=== PATIENT | female | born 1970 | race Caucasian/White ===

== ENCOUNTER 2023-09-22 14:53 | Emergency (ER) | payer SELFPAY ==
[2023-09-22 14:54] VITALS: TEMP 36.4; BMI 39.3
[2023-09-22 15:02] VITALS: BP 145/120; PULSE 110; RESP 26; O2SAT 100
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
--- NOTE | 2023-09-22 15:49 | CT_ITS ---
STUDY: CT CHEST, ABDOMEN T PELVIS WITH CONTRAST REASON FOR EXAM: Female, 53 years old. luq pain -- TRAUMA ONLY: IV Contrast. Dont wait for creatinine RADIATION DOSAGE (If Supplied By Facility): CTDIvol = ( 21.85 ) mGy, DLP = ( 2067.32 ) mGycm TECHNIQUE: Transaxial imaging was performed following intravenous administration of IV 100mL Isovue-370. Individualized dose optimization techniques were used for this CT. COMPARISON: No relevant priors. FINDINGS: CHEST Minor interstitial thickening and emphysematous changes in the upper lobes. Minor atelectasis within the dependent portion of the lungs.. Small noncalcified nodule in the right middle lobe measuring 7.1 x 8.8 mm There is no demonstrated pleural abnormality. Normal heart and pericardium. No appreciable coronary artery calcification Normal mediastinum. Normal hilar regions. Normal unenhanced pulmonary arteries. Normal aorta arch and descending thoracic aorta. Dorsal spine demonstrates degenerative change. Moderate size hiatal hernia noted. ABDOMEN There is asymmetric enlargement of the right lobe of the liver possibly ovarian. No space-occupying lesions or dilated ducts.. Normal gallbladder and extrahepatic biliary system. Normal spleen. Normal pancreas. Right adrenal is normal. There is a small left adrenal nodule measuring approximately 9.5 x 10.6 mm of indeterminate etiology may be further assessed with MRI if clinically warranted. Small nonobstructing calculus in the midpole of the right kidney.. No evidence for hydronephrosis or mass. Normal left kidney. Normal visualized stomach. Normal small intestine. Normal colon. No evidence for acute appendicitis. Atherosclerotic changes of the aorta without evidence for aneurysm.. Normal inferior vena cava. Normal retroperitoneum. Normal abdominal wall. PELVIS Poorly distended thick walled bladder likely of no significance. . Large cystic mass in the right adnexa measuring 6.75 x 5.1 cm tiny focal calcification in the wall most likely ovarian in etiology. Uterus not visualized consistent with hysterectomy Normal visualized small intestine. Normal visualized colon. There is no pelvic fluid. There is no pelvic lymphadenopathy or mass lesion. Normal visualized pelvic arteries. Normal abdominal wall. Lumbar spine demonstrates mild spondylosis. CT/CT Chest, Abd, Pel w/Contrast IMPRESSION: No acute posttraumatic abnormalities of the chest abdomen or pelvis . Mild emphysematous changes in the upper lobes and noncalcified nodule in the right middle lobe of indeterminate etiology. Recommend follow-up imaging utilizing Fleischner Society criteria Moderate size hiatal hernia. Right nephrolithiasis without evidence for obstruction or ureteral calculus Status post hysterectomy. Large right adnexal cystic mass with tiny rim calcification most likely ovarian. Small left adrenal nodule of uncertain etiology MRI recommended for further evaluation Electronically Signed: Melo Nettles MD at 17:30 EST ,
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
[2023-09-22 16:00] VITALS: PULSE 76; RESP 16; O2SAT 100
--- NOTE | 2023-09-22 16:03 | ED.RN ---
NO OLD EKG
[2023-09-22] MEDS: 0.9% Normal Saline (1000mL) 1,000 ML 999 ML IV (16:31)
[2023-09-22] MEDS: Ketorolac 15 MG/ML Vial IV (16:31)
[2023-09-22] MEDS: Lidocaine 5% Patch 1 PATCH TOPICAL (16:31)
[2023-09-22 16:49] LABS: Absolute Lymphocyte Count 2.19 X10^3/uL (0.83-4.51); Absolute Neutrophil Count 11.3 X10^3/uL (2.0-7.7); Basophil# 0.05 X10^3/uL; Basophil% 0.3 % (0-1); Eosinophil# 0.27 X10^3/uL; Eosinophils% 1.9 % (0-5); Hematocrit 41.8 % (37-47); Hemoglobin 14.4 g/dL (12.0-15.0); Lymphocyte # 2.19 X10^3/ul (0.83-4.51); Mean Corp Hgb Conc 34.4 g/dL (32-36); Mean Corpuscular Volume 87.1 fL (81-99); Mean Platelet Vol. 9.9 fl (6.2-12.0); Monocyte# 0.68 X10^3/uL; Monocyte% 4.7 % (0-10); NRBC Flagged by Analyzer 0 % (0-5); Neutrophil # 11.29 X10^3/uL (2.7-7.7); Neutrophil % 77.6 % (47-70); Platelet Count 300 K/mm3 (150-450); RBC Distribution Width CV 13.4 % (11.6-14.6); RBC Distribution Width SD 42.5 fl (35.1-43.9); White Blood Count 14.6 K/mm3 (4.4-11.0)
[2023-09-22 17:00] VITALS: PULSE 88; RESP 14; O2SAT 98
[2023-09-22 17:02] LABS: Anion Gap 7 (5-15); BUN 11 mg/dL (7-18); BUN/Creat Ratio 11.1 RATIO (10-20); Calcium,Total 9.8 mg/dL (8.5-10.1); Chloride 108 mmol/L (98-107); Creatinine, Serum 0.99 mg/dL (0.55-1.02); EST Glomerular Filtration Rate 63 mL/min (>60); Est Glom Filt Rate - Afr Amer 76 mL/min (>60); Estimated Creatinine Clearance 75.26 ml/min; Glucose 136 mg/dL (74-106); Lipase 30 U/L (13-75); Potassium 3.6 mmol/L (3.5-5.1); Sodium Level 138 mmol/L (136-145)
--- OUTSIDE RECORDS SUMMARY | 2023-09-22 17:13 | XMS RPT_ITS | CCD ---
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 AMARIS CHACON Referring Unavaila ble DAVID, Dr. AMARIS CHACON Attending Unavaila ly HERNANDEZ, Dr. AMARIS CHACON Primary Care Unavaila ble DAVID, Dr. AMARIS CHACON Primary Care Unavaila ble DAVID, Dr. AMARIS CHACON Referring Unavaila ble DAVID, Dr. AMARIS CHACON Attending Unavaila ble Allergies Allergy Classification Reported Allergen(s) Allergy Type Date of Onset Reaction(s) Facility (3 sources) Acetaminophen / HYDROcodone; Translations: [Vicodin TABS] Drug Allergy [facility] Work Phone: (3 sources) Other Allergy to substance (finding) [facility] Work Phone: Medications Completed/Discontinued Medications Medication Drug Class(es) Dates Sig (Normalized) Sig (Original) 200 actuat albuterol 0.09 mg/actuat metered dose inhaler (4 sources) beta2-Adrenergic Agonist Start: 06-02-2019 take 1-2 puff(s) by inhalation every four to six hours as needed ProAir HFA 108 (90 Base) MCG/ACT Inhalation Aerosol Solution INHALE 1-2 PUFFS EVERY 4-6 HOURS NEEDED AND DIRECTED. Quantity: 1 Refills: 2 Amaris Hernandez MD Start : 02-Jun-2019 Active 8.5 GM Inhaler Problems Active Problems Problem Classification Problem Date Documented Da te Episodic/Chronic Acute bronchitis (3 sources) Acute bronchitis; Translations: [Acute bronchitis] Episodic Asthma (3 sources) Asthma; Translations: [Asthma, unspecified type, unspecified] Chronic Esophageal disorders (3 sources) Gastroesophageal reflux disease; Translations: [Esophageal reflux] Chronic Headache; including migraine (3 sources) Migraine; Translations: [Migraine, unspecified, without mention of intractable migraine without mention of status migrainosus] Chronic Immunizations and screening for infectious disease (4 sources) Patient encounter status; Translations: [Other specified vaccination] Episodic Osteoarthritis (3 sources) Arthritis; Translations: [Arthropathy, unspecified, site unspecified] Chronic Other endocrine disorders (6 sources) Hypoglycemia; Translations: [Hypoglycemia, unspecified] Chronic Past or Other Problems Problem Classification Problem Date Documented Da te Episodic/Chronic Residual codes; unclassified (2 sources) History of clinical finding in subject; Translations: [Personal history of other specified diseases] Resolved: 11-22-2015 Episodic Unclassified (1 source) History of clinical finding in subject; Translations: [History of edema] Unclassified (1 source) Patient encounter status; Translations: [Encounter for immunization] NEGATED: Highlighted row has not occurred!Residual codes; unclassified (3 sources) Disease Episodic Results Test Name Value Interpretation Reference Range Facil ity Vital Signs Date Time Vital Sign Value Performing Clinician Deejay baltazar 08-07-2022 14:53-0500 Diastolic blood pressure 100 mm[Hg] Amaris Hernandez Work Phone: [facility] Work Phone: 08-07-2022 14:53-0500 Systolic blood pressure 168 mm[Hg] Amaris Hernandez Work Phone: [facility] Work Phone: 08-07-2022 14:25-0500 Diastolic blood pressure 100 mm[Hg] Amaris Hernandez Work Phone: [facility] Work Phone: 08-07-2022 14:25-0500 Systolic blood pressure 170 mm[Hg] Amaris Hernandez Work Phone: [facility] Work Phone: 08-07-2022 14:10-0500 Body height 160.02 cm Amaris Hernandez Work Phone: [facility] Work Phone: 08-07-2022 14:10-0500 Body mass index (BMI) [Ratio] 41.63 kg/m2 Amaris Hernandez Work Phone: [facility] Work Phone: 08-07-2022 14:10-0500 Body surface area Derived from formula 2.07 m2 Amaris Hernandez Work Phone: [facility] Work Phone: 08-07-2022 14:10-0500 Body temperature 98.3 [degF] Amaris Hernandez Work Phone: [facility] Work Phone: 08-07-2022 14:10-0500 Body weight 106.6 kg Amaris Hernandez Work Phone: [facility] Work Phone: 08-07-2022 14:10-0500 Diastolic blood pressure 120 mm[Hg] Amaris Hernandez Work Phone: [facility] Work Phone: 08-07-2022 14:10-0500 Heart rate 90 /min Amaris Covarrubiasmel Work Phone: [facility] Work Phone: 08-07-2022 14:10-0500 Respiratory rate 18 /min Amaris Hernandez Work Phone: [facility] Work Phone: 08-07-2022 14:10-0500 Systolic blood pressure 180 mm[Hg] Amaris Covarrubiasmel Work Phone: [facility] Work Phone: Encounters Encounter Date Encounter Type Care Provider Facility Start: 08-21-[address] AMARIS HERNANDEZ Facility:[id number] Start: 08-07-[address] AMARIS HERNANDEZ Facility:[id number] Start: 08-07-2022 Office outpatient vi sit 25 minutes Amaris Hernandez Work Phone: [facility] Work Phone: Start: 08-07-2022 Patient encounter procedure Amaris Hernandez Work Phone: [facility] Work Phone: Start: 03-05-2020 Patient encounter procedure Amaris Hernandez [facility] Work Phone: Start: 11-07-2019 Patient encounter procedure [facility] Work Phone: Start: 04-28-2019 Patient encounter procedure [facility] Work Phone: Procedures Date Procedure Procedure Detail Performing Clinician Hernia repair Amaris Hernandez Hysterectomy Amaris Hernandez Plan of Treatment Date Care Activity Detail Author Start: 08-21-2022 Nursing evaluation o f patient and report NURSEVST, Provider: NURSE MINA,PRASHANTH COLLINS, Status: Pen, Time: 10:00 AM [facility] Work Phone: Immunizations Immunization Date Immunization Notes Care Provider Fa cility 03-05-2020 tetanus toxoid, redu shayan diphtheria toxoid, and acellular pertussis vaccine, adsorbed; Translations: [Tdap (Adacel)] Amaris Hernandez [facility] Work Phone: Payers Date Payer Category Payer Unknown [id number] 1970 Unknown [id number] Private Health Insurance [id number] Unknown [facility] Social History Date Type Detail Facility Caffeine use Caffeine use [facility] Work Phone: NEGATED: Highlighted row - - [facility] Work Phone: Functional Status Date Assessment Result Facility NEGATED: Highlighted row Functional performance Functional status health issues are not documented Disease [facility] Work Phone: Mental Status Date Assessment Result Facility NEGATED: Highlighted row Cognitive function [Interpretation] Cognitive status health issues are not documented Disease [facility] Work Phone: History of Present illness Narrative Note Date & Type Note Facility History of Present illness Narrative 52 year old female with hx of GERD, asthma presenting for f/u medications.She does thyroid US and chest CTShe was unable to see anyone during the pandemic due to issues with masking.Does not want to wear a mask.She refuses to take BP meds.Refuses to check at home.Has been under a lot stress at work.BP elevated.Was working on weight loss.She has some congestion.Increased asthma symptoms.When gets congested she likes to use steroids.No chest pain, SOB, leg edema, no headaches or dizziness.Exercise tolerance good. [facility] Work Phone: History of Present illness Narrative Note Date & Type Note Facility History of Present illness Narrative 52 year old female with hx of GERD, asthma presenting for f/u medications.She does thyroid US and chest CTShe was unable to see anyone during the pandemic due to issues with masking.Does not want to wear a mask.She refuses to take BP meds.Refuses to check at home.Has been under a lot stress at work.BP elevated.Was working on weight loss.She has some congestion.Increased asthma symptoms.When gets congested she likes to use steroids.No chest pain, SOB, leg edema, no headaches or dizziness.Exercise tolerance good. [facility] Work Phone: Summary Purpose Family History No Family History Records Found Father Name Dates Details Family history of malignant neoplasm(V16.9, Z80.9) Status:Active Sister Name Dates Details Family history of Thyroid tr ouble(246.9, E07.9) Status:Active Unknown Family Member Name Dates Details Family history of malignant neoplasm: Father(V16.9, Z80.9) Status:Active Thyroid trouble: Sister Status:Active Unknown Family Member Name Dates Details Family history of malignant neoplasm: Father(V16.9, Z80.9) Status:Active Thyroid trouble: Sister Status:Active Advance Directives No Advanced Directives Records FoundNo Advanced Directives Records FoundNo Advanced Directives Records Found Hospital Course Note HNO ID: [id number] Author: Joyce Gipson Jr. Service: Hospital Medicine Author Type: Physician Type: Discharge Summary Filed: 08/25/2020 3:49 PM Note Text: DISCHARGE SUMMARY PATIENT NAME: Althea Mccartney ADMISSION DATE: 08/22/2020 DISCHARGE DATE: 08/25/2020 ATTENDING PHYSICIAN: Lex Gipson Jr. Code Status: Not on file Highest Readmission Risk Score: 12 The 30 day readmissions risk score is derived from an internally validated risk model which evaluates patient level characteristics, utilization history, medication orders and lab results up until the day of discharge. Patients with a score of 40 or above are considered highest risk for readmission. Specific patient level drivers will be listed at the bottom of the summary. Treatment Team: Attending Provider: Lex Gipson Jr. Primary Service: Team 1 Hi Consulting: Mike Tesfaye MD REASON FOR HOSPITALIZATION: COVID-19 Pneumonia; Hypoxia DIAGNOSIS: Principal Problem: Acute respiratory failure with hypox (more content not included)... Chief Complaint Chief Complaint: ALTHEA MCCARTNEY is here with a chief complaint of . Medication.Chief Complaint: ALTHEA MCCARTNEY is here with a chief complaint of . Medication. Additional Source Comments INFORMATION SOURCE (unrecogn ized section and content) DATE CREATED AUTHOR AUTHOR'S ORGANIZ ATION 08/08/2022 [employer] DATE CREATED AUTHOR AUTHOR'S ORGANIZ ATION 08/28/2022 [facility] FOR RECORDS PERTAINING TO PATIENTS WHO ARE OR HAVE BEEN ENROLLED IN A CHEMICAL DEPENDENCY/SUBSTANCEABUSE PROGRAM, SOME INFORMATION MAY BE OMITTED. This clinical summary was aggregated from multiple sources. Caution should be exercised in using it in the provision of clinical care. This summary normalizes information from multiple sources, and as a consequence, information in this document may materially change the coding, format and clinical context of patient data. In addition, data may be omitted in some cases. CLINICAL DECISIONS SHOULD BE BASED ON THE PRIMARY CLINICAL RECORDS. [facility]. provides no warranty or guarantee of the accuracy or completeness of information in this document.
[2023-09-22 17:37] LABS: Alcohol, Blood (Medical)-Serum < 3.0 mg/dL
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
--- NOTE | 2023-09-22 18:20 | RAD_ITS ---
STUDY: X-RAY - RIGHT KNEE REASON FOR EXAM: Female, 53 years old. pain TECHNIQUE: 4 view(s) of the knee. COMPARISON: None. FINDINGS: Normal visualized distal femur. Normal visualized proximal tibia and fibula. Normal proximal tibiofibular articulation. Normal medial femorotibial compartment. Normal lateral femorotibial compartment. Normal patellofemoral articulation. Prepatellar soft tissue swelling is noted. RAD/Knee 4 or More Views IMPRESSION: Prepatellar soft tissue swelling without associated acute fracture or dislocation. Electronically Signed: Melo Nettles MD at 18:40 EST Reading Location ID and State: [address] [place] [address] Tel , Service support ,
[2023-09-22 19:30] VITALS: RESP 14; O2SAT 100
== END 2023-09-22 19:31 | disposition home or self-care (01) ==
PROVIDERS: Emergency Provider Student in an Organized Health Care Education/Training Program; Visit Provider Student in an Organized Health Care Education/Training Program
DX: S80.01XA Contusion of right knee, initial encounter (principal); V43.62XA Car passenger injured in collision with other type car in traffic accident, initial encounter; J45.909 Unspecified asthma, uncomplicated; S39.91XA Unspecified injury of abdomen, initial encounter
CPT/HCPCS: 70450; 71260; 72125; 73564; 74177; 80048; 80320; 83690; 85025; 93005; 96361; 96374; 99284; J7030; Q9967; A4216; G0480

== ENCOUNTER → 2024-08-07 | Outpatient (CLI) | payer MEDICAID, SELFPAY ==
--- NOTE | 2024-08-07 07:57 | US_ITS ---
STUDY: ABDOMINAL ULTRASOUND - RIGHT UPPER QUADRANT; ELASTOGRAPHY REASON FOR VISIT: Female, 54 years old. Fatty infiltration of the liver. TECHNIQUE: Ultrasound evaluation of the right upper quadrant was performed with real-time and static stearns-scale imaging. Point quantification shear wave elastography was performed ([employer]). TECHNICAL QUALITY: Adequate. COMPARISON: None. FINDINGS: Liver: The liver is enlarged and measures 19.1 cm. There is increased echogenicity consistent with fatty infiltration. The bile ducts are within normal limits. There is hepatic color flow. The direction of portal flow is hepatopetal. There is no demonstrated mass lesion. Median liver stiffness measured 7 kPa. Gallbladder: Normal distended gallbladder. The gallbladder wall measures 1.3 mm. There is a negative sonographic Elizabeth''s sign. There is no pericholecystic fluid. There are no gallstones. Common Bile Duct (C.B.D.): The common bile duct measures 3.5 mm. Pancreas: There is normal echogenicity of the visualized pancreas. There is no demonstrated pancreatic mass or cyst. Right Kidney: Normal size of the right kidney. The right kidney measures 11.3 cm x 6.1 cm x 4.8 cm. Normal renal cortex. The right cortex measures 1.2 cm. There is no demonstrated renal mass or cyst. There is no right hydronephrosis. US/ABD Limited w/ Elastography IMPRESSION: 1. Liver stiffness measures 7 kPa compatible with F2-F3 (Mild to moderate liver fibrosis) Metavir score. Electronically Signed: Clemente Raya MD at 14:57 EST ,
== END | disposition home or self-care (01) ==
LOC: US 07:57
PROVIDERS: Referring Provider Internal Medicine Gastroenterology; Visit Provider Internal Medicine Gastroenterology
DX: K76.0 Fatty (change of) liver, not elsewhere classified (principal)
CPT/HCPCS: 76705; 76981